=== PATIENT | female | born 1955 | race Caucasian/White ===

== ENCOUNTER 2016-10-24 16:07 | Emergency (ER) | payer OTHER ==
[~2016-10-24] VITALS: Ht 154.9 cm; Wt 79.0 kg
[2016-10-24] MEDS ORDERED: LISI10TA4 PO (16:31)
[2016-10-24] MEDS ORDERED: METF10004 PO (16:31)
[2016-10-24] MEDS ORDERED: SIMV40TA2 PO (16:33)
[2016-10-24] MEDS ORDERED: [UNRECOGNIZED DRUG - OTHER] (16:33)
[2016-10-24] MEDS ORDERED: GLIP5TAB8 PO (16:33)
[2016-10-24] MEDS ORDERED: ASPI81CH PO (16:33)
[2016-10-24] MEDS ORDERED: ONDANSETRON 4 MG ORAL DISINTEGRATING TAB (S0181) PO ONE (17:00)
[2016-10-24] MEDS ORDERED: NORCO, ANEXSIA 5/325MG TABLET (HYDROcodone/ACETAMINOPHEN) PO ONE (17:00)
[2016-10-24 17:45] VITALS: BP 162/100
[2016-10-24] MEDS ORDERED: NORCOTAB PO (17:52)
[2016-10-24] MEDS ORDERED: ZOFR4TAB3 PO (17:53)
[2016-10-24] MEDS ORDERED: NORCO 5/325MG TABLET (BULK FOR ED) PO ONE (18:00)
--- NOTE | 2016-10-25 07:40 | REP ---
REASON: Trauma with pain in the neck. COMPARISON: None. There is disc space narrowing with anterior and posterior osteophytic ridging seen at every level, but particularly C5-6 and C6-7 where air densities in the disc spaces present consistent with vacuum phenomena from degenerative disc disease. Vertebral body height is within normal limits. The facet joints are well aligned bilaterally. There is a mild cervical kyphotic curve. The bones are demineralized. There is no acute cervical spine fracture. There is no abnormal paraspinal soft tissue swelling. IMPRESSION: Chronic changes. There is no evidence of an acute fracture. Signed by Manny Brown DO 10/25/2016 10:58 A
--- NOTE | 2016-10-25 07:41 | REP ---
REASON: Head pain after trauma. COMPARISON: None. TECHNIQUE: 4.5 mm contiguous transaxial sections were obtained from the skull base to the cerebral convexities with thin cuts through the posterior fossa without the administration of intravenous contrast. FINDINGS: The ventricles and sulci are consistent with the patient's age. There are no extra-axial fluid collections. There is no mass effect. The deep cerebral white matter is consistent with the patient's age. The orbital and petrous structures , cerebellopontine angles, and posterior fossa are unremarkable. The sella turcica, cavernous, and paracavernous structures are essentially unremarkable. The visualized portions of the paranasal sinuses and mastoid air cells are clear. Images of the skull base show no gross abnormality. IMPRESSION: Essentially unremarkable CT examination of the brain. Signed by Manny Brown DO 10/25/2016 10:58 A
== END 2016-10-24 18:11 | disposition home or self-care (01) ==
LOC: M ED 16:07
DX: M54.2 Cervicalgia (principal); Z87.891 Personal history of nicotine dependence; Z79.82 Long term (current) use of aspirin; Z79.899 Other long term (current) drug therapy; Z79.84 Long term (current) use of oral hypoglycemic drugs; Z88.0 Allergy status to penicillin